=== PATIENT | male | born 1965 | race Caucasian/White ===

== ENCOUNTER → 2016-11-06 | Day surgery (SDC) | payer OTHER ==
[2016-10-28 13:17] VITALS: BMI 34.0
--- NOTE | 2016-10-28 13:52 | PAT Medication Instructions ---
Service Date Oct 28, 2016. Current Home Medication List Amitriptyline Hcl (Amitriptyline Hcl), 50 MG PO HS Fluticasone Propionate (Nasal) (Flonase Allergy Relief), 2 SPRAYS DARLENE PRN Ipratropium-Albuterol (Combivent Respimat), 1 PUFFS INH QID PRN for PRN Multivitamin (Multivitamin), 1 TAB PO QAM Omeprazole (Prilosec), 20 MG PO QAM Sumatriptan Succinate (Imitrex), 50 MG PO PRN Tramadol (Ultram), 50 MG PO QID PRN for RN [Potassium], 1 TAB PO QAM Medication Instructions For Your Scheduled Surgery - Hold the following medications the morning of surgery: [Potassium], 1 TAB PO QAM Multivitamin (Multivitamin), 1 TAB PO QAM - Take the following medications the morning of surgery with a sip of water: Omeprazole (Prilosec), 20 MG PO QAM Ipratropium-Albuterol (Combivent Respimat), 1 PUFFS INH QID PRN for PRN Fluticasone Propionate (Nasal) (Flonase Allergy Relief), 2 SPRAYS DARLENE PRN Tramadol (Ultram), 50 MG PO QID PRN for RN (okay to take up to 4 hours prior to surgery if needed) - Take the following medications as scheduled the night before surgery: Ipratropium-Albuterol (Combivent Respimat), 1 PUFFS INH QID PRN for PRN Fluticasone Propionate (Nasal) (Flonase Allergy Relief), 2 SPRAYS DARLENE PRN Amitriptyline Hcl (Amitriptyline Hcl), 50 MG PO HS Tramadol (Ultram), 50 MG PO QID PRN for RN If you have any questions please call us at [phone] (Sadaf Garza PA-C ) or [phone] or [phone]
--- NOTE | 2016-10-28 14:28 | DIAGNOSTIC IMAGING REPORT ---
CHEST PREADMISSION(PA/LAT) CLINICAL HISTORY: Preoperative evaluation. COMPARISON STUDY: Chest radiograph July 07, 2012. FINDINGS: Lung volumes are normal. Lungs are clear. There is no pneumothorax or pleural effusion. There is no evidence of pulmonary edema. There is mild enlargement of the cardiac silhouette. IMPRESSION: 1. No acute cardiopulmonary findings. 2. Mild enlargement of the cardiac silhouette. Electronically signed by: Gerardo Boswell M.D. 10/28/2016 2:27 PM Dictated Date/Time: 10/28/2016 2:26 PM
[2016-10-28 14:50] LABS: BASO % 0.4 %; BASO ABS # 0.02 K/uL (0-0.2); COMPLETE YES; EOS % 2.7 %; HEMATOCRIT 42.4 % (42-52); IG% 0.2 %; LYMPH % 33.8 %; LYMPH ABS # 1.52 K/uL (1.2-3.4); MEAN CORPUSCULAR HEMOGLOBIN 33.9 pg (25-34); MEAN CORPUSCULAR HGB CONC 36.1 g/dl (32-36); MEAN PLATELET VOLUME 10.6 fL (7.4-10.4); MONO % 7.8 %; NEUT % 55.1 %; PLATELET COUNT 135 K/uL (130-400); RED BLOOD COUNT 4.51 M/uL (4.7-6.1)
[2016-10-28 14:54] LABS: URINE APPEARANCE CLEAR (CLEAR); URINE BILIRUBIN NEG (NEG); URINE COLOR YELLOW; URINE NITRITE NEG (NEG); URINE PH 5.5 (4.5-7.5); URINE SPECIFIC GRAVITY 1.004 (1.000-1.030); UROBILINOGEN NEG (NEG)
[2016-10-28 14:58] LABS: PARTIAL THROMBOPLASTIN RATIO 1.1; PROTHROMBIN TIME (PATIENT) 10.8 SECONDS (9.0-12.0)
[2016-10-28 15:07] LABS: MANUAL MICROSCOPIC REQUIRED? NO; REVIEW REQ? NO
--- NOTE | 2016-11-05 10:53 | HISTORY & PHYSICAL EXAMINATION ---
DATE OF ADMISSION: 11/06/2016 CHIEF COMPLAINT: Right shoulder pain. HISTORY OF PRESENT ILLNESS: The patient is a 51-year-old gentleman presented to our office for right shoulder pain and disability. He was seen and evaluated and scheduled for a shoulder MRI. The MRI demonstrated a small partial thickness versus small full thickness rotator cuff tear. He is now scheduled for a right shoulder arthroscopy, subacromial decompression, possible rotator cuff repair. PAST MEDICAL HISTORY: Asthma, sleep apnea with CPAP use, depression, acid reflux, obesity. PAST SURGICAL HISTORY: None. MEDICATIONS: Omeprazole 20 mg daily before first meal, amitriptyline 50 mg at bedtime, Combivent Respimat 1 puff 4 times daily, Flonase 2 sprays each nostril daily, tramadol 50 mg p.r.n. pain, sumatriptan 50 mg p.r.n. onset of migraine. ALLERGIES: No known drug allergies. SOCIAL HISTORY: He states a [id number] smoking history. REVIEW OF SYSTEMS: Noncontributory. PHYSICAL EXAMINATION: GENERAL: Well-nourished, well-developed, obese male who appears his stated age. HEAD, EYES, EARS, NOSE, AND THROAT: Normocephalic, atraumatic. Extraocular movements intact. Oropharynx pink and moist. NECK: Supple without adenopathy. LUNGS: Clear to auscultation bilaterally. HEART: Regular rate and rhythm. ABDOMEN: Soft, nontender, nondistended, obese. EXTREMITIES: The right shoulder demonstrates painful range of motion. There is weakness in the rotator cuff with resistive testing. There is mild tenderness at the AC joint. X-RAYS: Plain films and MRI are reviewed. The plain films are within normal limits. The MRI shows a small partial thickness versus small full thickness supraspinatus tear. There is evidence of degenerative changes at the AC joint. ASSESSMENT: Right shoulder pain, possible rotator cuff tear. PLAN: Risks versus benefits discussed. Consent was obtained. The patient's primary care physician is Dr. Saldaña. Will proceed with right shoulder arthroscopy, subacromial decompression, and possible rotator cuff repair as indicated upon preoperative workup and medical clearance.
[~2016-11-06] VITALS: Ht 182.9 cm; Wt 113.8 kg
[~2016-11-06] MED LIST: ALBUT/IPRATROP 3MG/0.5MG NEB 3 ML VIAL ONE; AMIT50TA3 PO; ATROPINE SULFATE 0.1 MG/ML 5ML SYR IV PRN; BUPIVACAINE/EPINEPHRINE 0.25% 1:200,000 30 ML VIAL ONE; CEFAZOLIN 2000 MG/60 ML D5W IV SCH; DEXAMETHASONE SOD INJ 4 MG/ML VIAL ONE; EpHEDrine SULFATE INJ 50 MG/ML AMP IV PRN; EpHEDrine SULFATE INJ 50 MG/ML AMP ONE; FENTANYL CITRATE INJ 50 MCG/1 ML 2 ML VIAL IV PRN; FENTANYL CITRATE INJ 50 MCG/1 ML 2 ML VIAL ONE; FLUMAZENIL 0.1 MG/1 ML 10 ML VIAL IV PRN; FLUT0.15 NAE; GLYCOPYRROLATE INJ 0.2 MG/ML VIAL ONE; HYDROCODONE/ACETAMOPHEN 5/325MG TAB PO PRN; HYDROmorphone INJ 2 MG/ML SYR/VIAL IV PRN; IPRA1AER2 INH; LABETALOL HCL IV 5 MG/ML 20ML IV PRN; LACTATED RINGER'S 1000ML 1,000 ML IV SCH; LIDOCAINE HCL 2% 2 ML VIAL (20MG/ML) ONE; MEPERIDINE HCL 25 MG/ML CARP IV PRN; MIDAZOLAM HCL 1 MG/ML 2ML VIAL ONE; MULT-506 PO; NALOXONE HCL 0.4 MG/1 ML VIAL/CARP IV PRN; NEOSTIGMINE METHYLSULFATE 5 MG/5 ML SYR ONE; OMEP20CA9 PO; ONDANSETRON INJ 2 MG/ML 2 ML VIAL IV PRN; ONDANSETRON INJ 2 MG/ML 2 ML VIAL ONE; OXYC-57 PO; OXYCODONE/ACETAMINOPHEN 5-325 TAB PO PRN; PHENYLEPHRINE 100MCG/ML 5ML SYR IV PRN; PHENYLEPHRINE 100MCG/ML 5ML SYR ONE; PHENYLEPHRINE HCL INJ 10 MG/ML VIAL ONE; POTASSIUM PO; PROPOFOL IV EMULSION 10 MG/ML 20 ML VIAL IV ONE; ROCURONIUM BROMIDE 10 MG/ML 5 ML VIAL ONE; ROPIVACAINE 0.5% 5 MG/ML 30 ML VIAL ONE; SODIUM CHLORIDE 0.9% 1000ML 1,000 ML IV SCH; SUCCINYLCHOLINE 100MG/5ML SYR IV ONE; SUCCINYLCHOLINE CHLORIDE 20 MG/ML 10 ML VIAL IV ONE; SUMA50TA15 PO; TRAM-10 PO
[2016-11-06 05:53] VITALS: BP 143/89; PULSE 91; TEMP 36.7; O2SAT 97; Ht 182.9 cm; Wt 113.8 kg
--- NOTE | 2016-11-06 06:54 | History & Physical Bridge Note ---
H&P Re-Evaluation Bridge Note: I have examined the patient, reviewed the History & Physical and in the interval since the performance of the History & Physical I have noted the following changes of clinical significance: No changes noted
--- NOTE | 2016-11-06 07:49 | [facility] Post Operative Brief Note ---
Immediate Operative Summary Operative Date Nov 06, 2016. Pre-Operative Diagnosis Right Shoulder Pain with Possible Rotator Cuff Tear Post-Operative Diagnosis Right Shoulder Pain with Impingement Procedure(s) Performed Right Shoulder: Arthroscopy and Subacromial Decompression Surgeon Dr. Dick Investment Sales Assistant Surgeon(s) OLAF Yee Estimated Blood Loss 10 ml Findings bursitis Specimens none per surgeon Disposition Recovery Room / PACU
--- NOTE | 2016-11-06 07:58 | Discharge Instructions ---
Discharge Instructions Date of Service Nov 06, 2016. Visit Reason for Visit: Right Shoulder Impingement Syndrome Discharge Discharge Diagnosis / Problem: Right shoulder impingement syndrome Discharge Goals Goal(s): Decrease discomfort, Improve function Activity Recommendations Activity Limitations: resume your previous activity Anesthesia . Post Anesthesia Instructions: If you have had General Anesthesia or IV Sedation: * Do not drive today. * Resume driving when surgeon permits. * Do not make important decisions or sign legal documents today. * Call surgeon for: 1. Temperature elevations greater than 101 degrees F. 2. Uncontrollable pain. 3. Excessive bleeding. 4. Persistent nausea and vomiting. 5. Medication intolerance (nausea, vomiting or rash). * For nausea and vomiting use only clear liquids such as: tea, soda, bouillon until nausea subsides, then gradually increase diet as tolerated. * If you have any concerns or questions, call your surgeon's office. If physician is unavailable and it is an emergency, call 911 or go to the nearest emergency room. . Instructions / Follow-Up Instructions / Follow-Up U DISCHARGE INSTRUCTIONS: SHOULDER ARTHROSCOPY with or without Distal Clavicle Excision SELF CARE INSTRUCTIONS AFTER: A. You are allowed to use your arm actively as comfort allows. Recommend NOT doing repetitive overhead activity or heavy lifting. B. You should start Physical Therapy within 1-3 days from your surgery. You will be provided a prescription with specific restrictions, if needed, at time of discharge. C. You can discontinue the sling as comfort allows within one to two days after surgery. A. At 48 hours post-operatively, you may change your dressing. . (Leave white steri-strips intact if present). Use band-aids and change daily. You are allowed to shower at this time and get the incision area wet, but DO NOT soak or submerge incision area in water. (No baths, swimming pools, hot tubs) B. Do NOT apply soap or any ointment/lotions directly over incision. C. You may use ice as needed to operative shoulder SPECIAL CARE INSTRUCTIONS: VERY IMPORTANT TO READ AND REVIEW A. There are a few signs you need to watch for after you are home. Call [facility] at [phone] if you experience any of the following: a. Increased severe shoulder pain. Some pain is expected especially when you exercise b. Increased swelling in your shoulder or arm; pain or swelling in either upper extremity. (Note: swelling and stiffness is normal and expected for several weeks post op, depending on type of shoulder surgery you had). c. Any fluid or drainage from the incision; redness of the incision. d. Shortness of breath or chest pain. B. Please call [facility] at [phone] if you have any questions or concerns about your operation or recovery. C. Call your physician if: a. Temperature is greater than 101 degrees (F). b. Pain is not relieved by prescribed pain medications. c. Increase drainage or redness from incision. d. Unanswered questions or concerns. D. Pain Medication: a. You will be prescribed pain medication upon discharge that should last till your first post-operative appointment. b. You may also take Advil or Ibuprofen between medication doses if you do not have any contraindication to taking them. c. You may also take Advil or Ibuprofen in place of your pain medication if the pain is tolerable. d. If you experience nausea and/or skin rash, discontinue this medication and contact our office for an alternative medication. e. Caution- narcotic pain medication can cause constipation. FOLLOW UP VISIT: Please call [facility] at [phone] to schedule a follow up appointment 10-14 days from your surgery date. Diet Recommendations Recommended Home Diet: resume previous diet Procedures Procedures Performed: Right Shoulder: Arthroscopy and Subacromial Decompression Pending Studies Studies pending at discharge: no Medical Emergencies . Who to Call and When: Medical Emergencies: If at any time you feel your situation is an emergency, please call 911 immediately. . Non-Emergent Contact Non-Emergency issues call your: Surgeon Call Non-Emergent contact if: temperature is above 101.5, your pain is not controlled, wound has increased drainage, wound has increased redness . . "Provider Documentation" section prepared by Jimi Abbasi PA-C. [place] Drug Monitoring Program Search Results: patient reviewed within database, no issues identified
[2016-11-06 08:50] VITALS: BP 116/67; PULSE 74; TEMP 36.5; O2SAT 92
--- NOTE | 2016-11-06 09:02 | Anesthesiology Progress Note ---
Anesthesia Post Op Note Date & Time Nov 06, 2016 at 09:02 Vital Signs Pain Intensity: 0 Vital Signs Past 12 Hours Date Time Temp Pulse Resp B/P Pulse Ox O2 Delivery O2 Flow Rate FiO2 11/06/16 08:45 78 16 98/58 93 Room Air 11/06/16 08:35 36.3 80 17 114/71 92 Room Air 11/06/16 08:25 81 24 107/67 92 Room Air 11/06/16 08:15 79 15 115/73 98 Mask 10 11/06/16 08:05 76 17 109/70 100 Mask 10 11/06/16 07:57 36.2 85 20 154/96 98 Mask 10 11/06/16 05:53 36.7 91 20 143/89 97 Room Air Notes Mental Status: alert / awake / arousable, participated in evaluation Pt Amnestic to Procedure: Yes Nausea / Vomiting: adequately controlled Pain: adequately controlled Airway Patency, RR, SpO2: stable & adequate BP & HR: stable & adequate Hydration State: stable & adequate Anesthetic Complications: no major complications apparent The patient did well. He was told to use his CPAP machine for any naps this afternoon as well as for sleeping tonight.
[2016-11-06 09:10] VITALS: BP 110/66; PULSE 78; TEMP 36.8; O2SAT 95
[2016-11-06 09:40] VITALS: BP 131/82; PULSE 78; TEMP 36.5; O2SAT 95
--- NOTE | 2016-11-06 13:22 | OPERATIVE REPORT ---
DATE OF OPERATION: 11/06/2016 PREOPERATIVE DIAGNOSIS: Impingement syndrome, right shoulder. POSTOPERATIVE DIAGNOSIS: Impingement syndrome, right shoulder. PROCEDURE: Arthroscopic subacromial decompression, right shoulder. SURGEON: Dr. Dick. PROCUREMENT ENGINEER: Jimi Abbasi PA-C. ANESTHESIA: General. COMPLICATIONS: None. PROCEDURE NOTE: Following the induction of adequate general anesthesia, the patient's right shoulder was prepped and draped in the usual sterile manner with him in the beach chair position. Posterior incision was used for insertion of the arthroscope. Intra-articular elements were identified and were within normal limits. The arthroscope was then placed in the subacromial space, where abundant bursitis was encountered. Bursectomy was carried out using a 9-degree ablator and arthroscopic subacromial decompression was carried out using a 5.5-mm alessio. The bursal and articular surfaces of the rotator cuff showed no evidence of tear. The arthroscope was withdrawn. The wounds were closed using 4-0 nylon simple sutures. Sterile dressing of Adaptic, 4x4's, Op-Site and a sling was applied. The patient tolerated the procedure well. I attest to the content of the Intraoperative Record and any orders documented therein. Any exceptio ns are noted below.
== END | disposition home or self-care (01) ==
LOC: C.ACU 05:11
DX: M75.41 Impingement syndrome of right shoulder (principal); M75.51 Bursitis of right shoulder; J45.909 Unspecified asthma, uncomplicated; F32.9 Major depressive disorder, single episode, unspecified; K21.9 Gastro-esophageal reflux disease without esophagitis; E66.9 Obesity, unspecified; Z68.34 Body mass index [BMI] 34.0-34.9, adult

== ENCOUNTER → 2017-11-24 | Day surgery (SDC) | payer OTHER ==
[2017-11-05 11:42] VITALS: Ht 182.9 cm; Wt 113.6 kg
[~2017-11-24] VITALS: Ht 182.9 cm; Wt 113.6 kg
[~2017-11-24] MED LIST changes: -ALBUT/IPRATROP 3MG/0.5MG NEB 3 ML VIAL ONE; +ALBUTEROL HFA INHALER 8.5 GM INH ONE; -BUPIVACAINE/EPINEPHRINE 0.25% 1:200,000 30 ML VIAL ONE; -CEFAZOLIN 2000 MG/60 ML D5W IV SCH; +CEFAZOLIN 2000MG IV PUSH 15 ML IV SCH; -EpHEDrine SULFATE INJ 50 MG/ML AMP ONE; +EpINEphrine INJ 1MG/ML AMP 1 MG/ML AMP ONE; -FLUMAZENIL 0.1 MG/1 ML 10 ML VIAL IV PRN; +HYDROCODONE/ACETAMIN 5/325MG TAB PO PRN; -HYDROCODONE/ACETAMOPHEN 5/325MG TAB PO PRN; +HYDROmorphone INJ 1 MG/ML SYR IV PRN; -HYDROmorphone INJ 2 MG/ML SYR/VIAL IV PRN; +LABETALOL HCL IV 5 MG/ML 20ML IV ONE; -LABETALOL HCL IV 5 MG/ML 20ML IV PRN; +LIDOCAINE 4% MPF SOAK 5 ML = 1 DOSE TOP ONE; +LIDOCAINE/EPINEPHRINE 1% 20 ML VIAL ONE; +LSN/10125 PO; -MEPERIDINE HCL 25 MG/ML CARP IV PRN; -NALOXONE HCL 0.4 MG/1 ML VIAL/CARP IV PRN; -OXYC-57 PO; -OXYCODONE/ACETAMINOPHEN 5-325 TAB PO PRN; +OXYMETAZOLINE HCL 0.05% NA SPR 15 ML BTL PRN; +OXYMETAZOLINE HCL 0.05% NA SPR 15 ML BTL SCH; -PHENYLEPHRINE 100MCG/ML 5ML SYR IV PRN; -PHENYLEPHRINE 100MCG/ML 5ML SYR ONE; -PHENYLEPHRINE HCL INJ 10 MG/ML VIAL ONE; +POTA1TAB PO; -POTASSIUM PO; +ROCURONIUM BROMIDE 10 MG/ML 5 ML VIAL IV ONE; -ROCURONIUM BROMIDE 10 MG/ML 5 ML VIAL ONE; -ROPIVACAINE 0.5% 5 MG/ML 30 ML VIAL ONE; -SODIUM CHLORIDE 0.9% 1000ML 1,000 ML IV SCH; -SUCCINYLCHOLINE 100MG/5ML SYR IV ONE; -TRAM-10 PO; +UMEC1INH INH
--- NOTE | 2017-11-24 10:35 | [facility] Operative Report ---
Operative Report Operative Date Nov 24, 2017. Pre-Operative Diagnosis Deviated Nasal Septum, Bilateral Inferior Nasal Turbinate Hypertrophy Post-Operative Diagnosis Same Procedure(s) Performed SEPTOPLASTY AND BILATERAL INFERIOR TURBINATE REDUCTION Surgeon Dr. Oh Fur Finisher Surgeon(s) None Estimated Blood Loss 10 mL Findings 1. MODERATELY SEVERE L DNS AND R>L ITH Specimens None Anesthesia Type General I attest to the content of the Intraoperative Record and any orders documented therein. Any exceptions are noted below.
--- NOTE | 2017-11-24 10:38 | Discharge Instructions ---
Discharge Instructions Date of Service Nov 24, 2017. Admission Reason for Admission: Deviated Septum, Hypertrophy Inferior Nasal Turbin Discharge Discharge Diagnosis / Problem: SAME Discharge Goals Goal(s): Therapeutic intervention Activity Recommendations Activity Limitations: as noted below 1. LIGHT ACTIVITY AND NO NOSE BLOWING FOR 2 WEEKS 2. NO DRIVING WHILE ON NORCO . Current Hospital Diet Patient's current hospital diet: Discharge Diet Recommended Diet: Regular Diet Procedures Procedures Performed: SEPTOPLASTY AND BILATERAL INFERIOR TURBINATE REDUCTION Pending Studies Studies pending at discharge: no Medical Emergencies . Who to Call and When: Medical Emergencies: If at any time you feel your situation is an emergency, please call 911 immediately. . Non-Emergent Contact Non-Emergency issues call your: Surgeon . . "Provider Documentation" section prepared by Emiliano Oh. .
--- NOTE | 2017-11-24 11:08 | OPERATIVE REPORT ---
DATE OF OPERATION: 11/24/2017 PREOPERATIVE DIAGNOSES: 1. Left septal deviation. 2. Right greater than left inferior turbinate hypertrophy. POSTOPERATIVE DIAGNOSES: 1. Left septal deviation. 2. Right greater than left inferior turbinate hypertrophy. PROCEDURES: 1. Septoplasty. 2. Bilateral inferior turbinate outfracture and turbinoplasty. SURGEON: Dr. Oh. ANESTHESIA: General endotracheal. ESTIMATED BLOOD LOSS: 10 mL FINDINGS: 1. Moderately severe left septal deviation. 2. Right greater than left inferior turbinate hypertrophy. SPECIMENS: None. COMPLICATIONS: None. INDICATIONS FOR THE PROCEDURE: The patient is a 52-year-old male with left greater than right nasal airway obstruction which has been refractory to maximal medical therapy including nasal steroid sprays and nasal antihistamine sprays. The patient was found on physical examination to have left septal deviation and right greater than left inferior turbinate hypertrophy. He presents for the above-mentioned procedure on an outpatient elective basis. DETAILS OF PROCEDURE: After informed consent had been obtained from the patient, the patient was wheeled to the operating room and placed on the operating room table in the supine position. Monitors were placed, and after induction of general endotracheal anesthesia, the patient was prepped in usual fashion for septoplasty. Lidocaine and epinephrine pledgets were placed in bilateral nasal cavities and pressure applied. After allowing adequate time for anesthesia and decongestion, the pledgets were removed and 1% lidocaine with 1:100,000 epinephrine was used to inject the nasal septum bilaterally, thereby performing hydrodissection of the mucoperichondrial and mucoperiosteal flaps. Lidocaine and epinephrine pledgets were then placed in bilateral nasal cavities and pressure applied. The pledgets were then removed. A #15 scalpel was used to make a left para-Thong incision through which the left-sided mucoperichondrial-mucoperiosteal flap was elevated. A #15 scalpel was used to incise the quadrangular cartilage with care to preserve a 1.5 cm dorsal and caudal strut and right-sided mucoperichondrial mucoperiosteal flap was elevated through this cartilaginous incision. A Gayle swivel knife was then used to remove the deviated portion of the quadrangular cartilage. A V-shaped osteotome, mallet and Aneesh forceps were then used to remove a large bony septal spur which was impinging on the nasal airway posteriorly on the left hand side. The septal cavity was then suctioned. The left para-Thong incision was closed with several simple interrupted 4-0 chromic sutures. A 4-0 plain gut suture on a Guerrero needle was then used to perform a quilting stitch through the mucoperichondrial mucoperiosteal flaps bilaterally to help prevent septal hematoma. A Ly elevator was then used to infracture and subsequently outfracture the inferior turbinates bilaterally. These were injected with 1% lidocaine with 1:100,000 epinephrine. A 2.0 mm turbinate blade using powered instrumentation was then used to perform bilateral inferior turbinoplasties in a submucosal fashion. The nasal cavities and nasopharynx were then suctioned. An orogastric tube was placed and the stomach was suctioned free of air and stomach contents. This marked the end of the case. The patient tolerated the procedure well with no apparent complications. The patient was extubated and transferred to recovery room in stable condition. I attest to the content of the Intraoperative Record and any orders documented therein. Any exception s are noted below.
[2017-11-24 11:30] VITALS: TEMP 36.2
--- NOTE | 2017-11-24 11:47 | Anesthesia Progress Nt - [facility] ---
Anesthesia Post Op Note Date & Time Nov 24, 2017 at 11:47 Vital Signs Pain Intensity: 0 Vital Signs Past 12 Hours Date Time Temp Pulse Resp B/P (MAP) Pulse Ox O2 Delivery O2 Flow Rate FiO2 11/24/17 11:30 36.2 73 16 130/87 (101) 97 Room Air 11/24/17 11:17 70 19 94 11/24/17 11:17 72 19 11/24/17 11:16 129/88 11/24/17 11:14 65 22 11/24/17 11:14 65 22 99 11/24/17 11:11 119/75 11/24/17 11:09 77 15 90 11/24/17 11:09 76 15 11/24/17 11:06 126/84 11/24/17 11:06 36.5 67 15 126/84 95 Room Air 11/24/17 11:04 69 18 100 11/24/17 11:04 69 18 11/24/17 11:01 115/77 11/24/17 10:59 69 16 94 11/24/17 10:59 70 16 11/24/17 10:56 120/77 11/24/17 10:54 68 25 11/24/17 10:54 68 25 97 11/24/17 10:51 117/75 11/24/17 10:49 69 20 99 11/24/17 10:49 68 20 11/24/17 10:47 118/77 11/24/17 10:44 69 24 98 11/24/17 10:44 68 24 11/24/17 10:41 141/92 11/24/17 10:40 127/90 11/24/17 10:39 83 11/24/17 10:39 36.3 84 16 127/90 99 Mask 6 11/24/17 10:39 83 97 11/24/17 08:39 36.4 75 18 151/96 (114) 95 Room Air Notes Mental Status: alert / awake / arousable, participated in evaluation Pt Amnestic to Procedure: Yes Nausea / Vomiting: adequately controlled Pain: adequately controlled Airway Patency, RR, SpO2: stable & adequate BP & HR: stable & adequate Hydration State: stable & adequate Anesthetic Complications: no major complications apparent
[2017-11-24 11:54] VITALS: BP 133/87; PULSE 69; O2SAT 97
== END | disposition home or self-care (01) ==
LOC: X.SURG 08:08
DX: J34.2 Deviated nasal septum (principal); J34.3 Hypertrophy of nasal turbinates; I10 Essential (primary) hypertension; G47.33 Obstructive sleep apnea (adult) (pediatric); Z91.030 Bee allergy status; F17.200 Nicotine dependence, unspecified, uncomplicated; Z98.890 Other specified postprocedural states; Z79.899 Other long term (current) drug therapy; E66.9 Obesity, unspecified; Z68.34 Body mass index [BMI] 34.0-34.9, adult; Z80.9 Family history of malignant neoplasm, unspecified; Z82.49 Family history of ischemic heart disease and other diseases of the circulatory system